=== PATIENT | female | born 1985 | race Caucasian/White ===

== ENCOUNTER 2016-08-18 20:20 | Emergency (ER) | payer OTHER ==
[~2016-08-18] VITALS: Ht 170.2 cm; Wt 90.7 kg
[2016-08-18 20:39] LABS: URINE BILIRUBIN NEGATIVE (Negative); URINE BLOOD NEGATIVE (Negative); URINE COLOR YELLOW; URINE GLUCOSE-RANDOM* 2+ (Negative); URINE KETONES NEGATIVE (Negative); URINE NITRITE NEGATIVE (Negative); URINE PROTEIN (DIPSTICK) NEGATIVE (Negative); URINE SPECIFIC GRAVITY 1.025 (1.003-1.035)
[2016-08-18 20:47] LABS: HEMATOCRIT 43.8 % (37.0-47.0); HEMOGLOBIN 14.8 gm/dL (12.0-15.0); MCH 29.8 pg (26.0-34.0); MCHC 33.8 % (28.0-37.0); MCV 88.1 fL (80.0-100.0); RBC 4.97 mil/uL (4.20-5.00); RDW 13.4 % (10.5-14.5)
[2016-08-18 21:29] LABS: CALCIUM 8.7 mg/dL (8.5-10.1); CREATININE 0.9 mg/dL (0.6-1.3); POTASSIUM 3.6 mmol/L (3.5-5.1)
[2016-08-18 21:37] LABS: ALBUMIN 3.6 g/dL (3.4-5.0); TOTAL BILIRUBIN 0.3 mg/dL (<0.1-1.0); TOTAL PROTEIN 7.6 g/dL (6.4-8.2)
[2016-08-18] MEDS ORDERED: PHENERGAN 25 MG25 M1 PO (21:39)
[2016-08-18 21:52] VITALS: BP 104/61
== END 2016-08-18 21:53 | disposition home or self-care (01) ==
LOC: ER 20:20
PROVIDERS: Physician Assistant
DX: B34.9 Viral infection, unspecified (principal); R11.2 Nausea with vomiting, unspecified; R19.7 Diarrhea, unspecified; F17.210 Nicotine dependence, cigarettes, uncomplicated; Z90.89 Acquired absence of other organs